=== PATIENT | male | born 1990 | race Caucasian/White ===

== ENCOUNTER 2021-12-09 09:08 | Emergency (ER) | payer OTHER ==
[~2021-12-09] VITALS: Ht 167.6 cm; Wt 87.0 kg
[2021-12-09 09:10] VITALS: BP 137/91
[2021-12-09 09:53] LABS: BASOPHILS % 0.4 % (0.0-2.0); EOSINOPHILS % 0.9 % (0.0-5.0); HEMATOCRIT. 46.8 % (42.0-52.0); HEMOGLOBIN. 16.1 g/dL (14.0-18.0); LYMPHOCYTES % 20.7 % (20.0-50.0); MEAN CORPUSCULAR HEMOGLOBIN 30.2 pg (28.0-32.0); MEAN CORPUSCULAR VOLUME 87.9 fL (80.0-94.0); MEAN PLATELET VOLUME 7.5 fl (7.4-10.4); PLATELET 289 x1000/uL (130-400); RED BLOOD CELL COUNT 5.32 mill/uL (4.7-6.1); RED CELL DISTRIBUTION WIDTH 13.3 % (11.6-14.6)
[2021-12-09 10:02] LABS: CHLORIDE 104 mEq/L (98-107)
[2021-12-09] MEDS ORDERED: IBUPROFEN 600MG TABLET PO ONE (10:30)
[2021-12-09] MEDS ORDERED: AMOX-424 MT (11:11)
[2021-12-09] MEDS ORDERED: METR500T MT (11:11)
== END 2021-12-09 11:55 | disposition home or self-care (01) ==
LOC: ER 10:25
DX: R10.32 Left lower quadrant pain (principal); K57.92 Diverticulitis of intestine, part unspecified, without perforation or abscess without bleeding
CPT/HCPCS: 36415; 74176; 80053; 85025; 99284